=== PATIENT | female | born 1990 | race Hispanic/Latino ===

== ENCOUNTER 2023-08-06 22:14 | Emergency (ER) | payer SELFPAY ==
[2023-08-06 22:16] VITALS: BP 111/75
[2023-08-06 23:58] VITALS: BP 109/58
[2023-08-07] VITALS (7 sets, daily range): BP systolic 96–114; BP diastolic 49–76
--- NOTE | 2023-08-07 00:14 | ED.GENMED ---
History of Present Illness
<DO Melissa Armstrong Last Filed: 08/07/23 00:18>
General
Chief Complaint: Abdominal Symptoms
Source: patient
Time Seen by Provider: 08/07/23 00:05
Travel History
Have you had any contact with someone who has COVID-19?: No
Do you have any symptoms of coronavirus? Fever > 100 degrees, chills, cough, shortness of breath, sore throat, loss of taste or smell, muscle aches, or headache?: No
History of Present Illness
History of Present Illness:
33-year-old [place]-speaking female presents to the emergency room complaining of nausea, vomiting, abdominal cramping. Patient began feeling unwell at about 5 PM. Around 8 PM patient began having nausea vomiting. No known fever. Patient did
take some lemon juice with [place] for the symptoms but this was not helpful.
Phy Exam
<Mina Butler DO - Last Filed: 08/07/23 00:18>
Physical Exam
Physical Exam:
General: Awake, Alert, Oriented X3. No acute distress.
Vitals: unremarkable
Head: Atraumatic
Eyes: Pupils equal, EOMI
Throat: Airway intact, no exudates
Neck: Trachea midline
Lungs: Clear and equal b/l
Heart: Regular rate, no murmurs
Abd: Soft, tender bilateral lower abdomen, No pulsatile mass
Neuro: Nonfocal
Skin: Warm, dry, no rash
Extremities: pulses equal b/l, no edema
Course
<Mina Butler DO - Last Filed: 08/07/23 00:18>
Orders/Labs/Results
Orders:
Orders
08/06/23 23:51
Complete Blood Count/No Diff Urgent
Comprehensive Metabolic Panel Urgent
Lipase Urgent
08/07/23 00:04
HCG, Serum Qualitative Screen Urgent
Comment: ADDED
08/07/23 00:13
0.9% Sodium Chloride 1000 ml [Nss] 1,000 ml IV BOLUS
Ketorolac [Toradol] 15 mg IV NOW STA
Ondansetron Injectable [Zofran] 4 mg IV NOW STA
08/07/23 00:14
Test Result ONCE
08/07/23 00:18
US Pelvis Only (non-obstetric) Urgent
Comment:
Reason For Exam: lower abd pain
08/07/23 00:20
Add On- LAB Urgent
Tests Added?: qualitative hcg
08/07/23 00:35
COVID-19 Antigen Urgent
Source: Nasal Swab
Influenza A+B Rapid Molecular Urgent
MARIANN Source: Nasal Swab
Specimen Description:
08/07/23 02:28
CT Abd/pel W Iv And Oral Contr Urgent
Comment:
Reason For Exam: lower abdominal pain
Iohexol [Omnipaque] See Protocol PO NOW STA
Abnormal Lab Results
08/07/23
00:04
WBC 13.0 H 10^3/uL
(4.8-10.8)
RBC 4.18 L 10^6/uL
(4.20-5.40)
Hgb 11.6 L g/dL
(12.0-16.0)
Hct 34.0 L %
(37.0-47.0)
Sodium 134 L mmol/L
(135-145)
Carbon Dioxide 16 L mmol/L
(22-30)
BUN 18 H mg/dl
(7-17)
Glucose 130 H mg/dl
(70-99)
08/07/23 00:04
08/07/23 00:04
Vital Signs
Initial and Last Documented VS:
Initial Vital Signs
Temp Pulse Resp BP Pulse Ox
98.6 F 95 16 111/75 100
08/06/23 22:16 08/06/23 22:16 08/06/23 22:16 08/06/23 22:16 08/06/23 22:16
Last Documented Vital Signs
Temp Pulse Resp BP Pulse Ox
98.6 F 77 14 99/76 100
08/06/23 22:16 08/07/23 05:52 08/07/23 05:52 08/07/23 05:52 08/07/23 05:52
<Mina Marks, DO - Last Filed: 08/09/23 18:10>
Orders/Labs/Results
Orders:
Orders
08/06/23 23:51
Complete Blood Count/No Diff Urgent
Comprehensive Metabolic Panel Urgent
Lipase Urgent
08/07/23 00:04
HCG, Serum Qualitative Screen Urgent
Comment: ADDED
08/07/23 00:13
0.9% Sodium Chloride 1000 ml [Nss] 1,000 ml IV BOLUS
Ketorolac [Toradol] 15 mg IV NOW STA
Ondansetron Injectable [Zofran] 4 mg IV NOW STA
08/07/23 00:14
Test Result ONCE
08/07/23 00:18
US Pelvis Only (non-obstetric) Urgent
Comment:
Reason For Exam: lower abd pain
08/07/23 00:20
Add On- LAB Urgent
Tests Added?: qualitative hcg
08/07/23 00:35
COVID-19 Antigen Urgent
Source: Nasal Swab
Influenza A+B Rapid Molecular Urgent
MARIANN Source: Nasal Swab
Specimen Description:
08/07/23 02:28
CT Abd/pel W Iv And Oral Contr Urgent
Comment:
Reason For Exam: lower abdominal pain
Iohexol [Omnipaque] See Protocol PO NOW STA
Abnormal Lab Results
08/07/23
00:04
WBC 13.0 H 10^3/uL
(4.8-10.8)
RBC 4.18 L 10^6/uL
(4.20-5.40)
Hgb 11.6 L g/dL
(12.0-16.0)
Hct 34.0 L %
(37.0-47.0)
Sodium 134 L mmol/L
(135-145)
Carbon Dioxide 16 L mmol/L
(22-30)
BUN 18 H mg/dl
(7-17)
Glucose 130 H mg/dl
(70-99)
08/07/23 00:04
08/07/23 00:04
Vital Signs
Initial and Last Documented VS:
Initial Vital Signs
Temp Pulse Resp BP Pulse Ox
98.6 F 95 16 111/75 100
08/06/23 22:16 08/06/23 22:16 08/06/23 22:16 08/06/23 22:16 08/06/23 22:16
Last Documented Vital Signs
Temp Pulse Resp BP Pulse Ox
98.6 F 77 14 99/76 100
08/06/23 22:16 08/07/23 05:52 08/07/23 05:52 08/07/23 05:52 08/07/23 05:52
<Mina Marks DO - Last Filed: 08/09/23 18:10>
*Critical Care Note
Total Time (30-74mins, 75-104mins- exclusive of procedures): Not Applicable
<DO Melissa Saenz Last Filed: 08/09/23 18:10>
Update Note
Update Note:
CT ABDOMEN AND PELVIS with oral and IV contrast
Comparison: Same day pelvic ultrasound.
IMPRESSION:
No acute findings.
No bowel inflammation or obstruction. Normal appendix.
Unremarkable CT appearance of the gallbladder and pancreas.
No obstructive uropathy.
Normal-sized ovaries.
Trace pelvic free fluid.
Small umbilical hernia containing fat.
ED Attending Note
<Mina Butler, DO - Last Filed: 08/07/23 00:18>
-
Portions of this chart may have been created with voice recognition software.� Occasional wrong word or��sound alike� substitutions may have occurred due to the inherent limitations of voice recognition software.
Discharge Plan
Departure
Patient Disposition: Home (Routine Discharge)
Date of Disposition: 08/07/23
Time of Disposition: 05:32
Patient with high blood pressure during this ER visit?: No
Condition: Good
Discharge Problem:
Abdominal pain
Instructions: Clear Liquid Diet, Abdominal Pain
Prescriptions:
New
ondansetron HCl 4 mg tablet
4 mg PO TID PRN (Reason: nausea and vomiting) Qty: 7 0RF
Referrals:
[facility] [Outside]
[facility] [Outside]
NONE,* [Family Provider] -
Activity Restrictions/Additional Instructions:
fied.]
It was a pleasure meeting you and taking part in your care. We hope for your continued healing and wellness.
Please read discharge instructions in their entirety. However, they are for general education and may not describe your exact diagnosis at discharge. Information on your ER visit and medical conditions were discussed with you along with appropriate
follow up information...
If indicated, please take your medications as instructed and indicated on discharge paperwork.
Please schedule a follow up appointment as directed. Call to schedule an appointment
Please return to the emergency department with ANY change in, persisting, or worsening of symptoms. If any of your symptoms do not improve, or persist, or become more severe within 6-12 hours, please return to the emergency department for further
care.
Please return to the emergency department if you develop a headache, neck pain/stiffness, fever greater than 100.4F, chest pain, shortness of breath, persistent nausea, vomiting, slurred speech, difficulty walking, numbness/tingling, weakness, signs
of infection or any other symptoms that are worrisome to you.
If you have any questions or concerns please do not hesitate to call the Hospital at or E-mail me directly at [email or web address]
Interventions
Interventions:
*Risk Screen - Suicide Last Done: 08/06/23 22:16
*General Assessment Last Done: 08/07/23 00:04
*Neglect/Abuse Screening Last Done: 08/06/23 22:16
ED- Fall Risk Assessment Last Done: 08/07/23 05:52
*ED COVID-19 Vaccine History Last Done: 08/07/23 00:04
*Nursing Disposition Last Done: 08/07/23 05:52
[facility]-Lfc[facility]peseg Assessment Last Done: 08/07/23 00:39
Discharge Date and Time
Discharge Date/Time: 08/07/23 06:03
[2023-08-07] MEDS: NSS 1000 IV (00:26)
[2023-08-07] MEDS: ZOFRAN 4 MG IV (00:26)
[2023-08-07] MEDS: TORADOL 15 MG IV (00:26)
[2023-08-07 00:34] LABS: Hemoglobin 11.6 g/dL (12.0-16.0); Mean Corp Hgb Conc. 34.1 g/dL (33.0-37.0); Mean Corpuscular Hgb 27.8 pg (27.0-31.0); Mean Corpuscular Volume 81.3 fL (81.0-99.0); Mean Platelet Volume 10.1 fL (7.4-10.4); Platelet Count 282 10^3/uL (130-400); Red Blood Cell Count 4.18 10^6/uL (4.20-5.40); Red Cell Dist. Width 13.7 % (11.5-14.5)
[2023-08-07 00:59] LABS: COVID-19 Antigen Negative (Negative)
[2023-08-07 01:14] LABS: ALT (SGPT) 25 U/L (0-35); AST (SGOT) 35 U/L (14-36); Albumin 4.5 g/dl (3.5-5.0); Alkaline Phosphatase 73 U/L (38-126); Blood Urea Nitrogen 18 mg/dl (7-17); Calcium 9.2 mg/dl (8.4-10.2); Carbon Dioxide 16 mmol/L (22-30); Chloride 107 mmol/L (98-107); Glucose 130 mg/dl (70-99); Lipase 70 U/L (23-300); Potassium 3.8 mmol/L (3.5-5.1); Sodium 134 mmol/L (135-145); Total Bilirubin 0.7 mg/dl (0.2-1.3); Total Protein 7.7 g/dl (6.3-8.2); eGFR > 60.00
[2023-08-07 01:16] LABS: HCG, Serum Qualitative Screen Negative
[2023-08-07] MEDS: OMNIPAQUE 50 ML PO (02:48)
== END 2023-08-07 06:03 | disposition home or self-care (01) ==
LOC: EMR 22:14
PROVIDERS: Student in an Organized Health Care Education/Training Program; EMERGENCY PHYSICIAN Emergency Medicine
DX: R10.30 Lower abdominal pain, unspecified (principal); R11.2 Nausea with vomiting, unspecified
CPT/HCPCS: 99285; 96374; 96375; 96361; 74177; 76856; 80053; 83690; 84703; 85027; 87502; 87811; Q9967